=== PATIENT | female | born 1995 | race African-American/Black ===

== ENCOUNTER 2017-05-11 10:14 | Emergency (ER) | payer MEDICAID, OTHER ==
[~2017-05-11] VITALS: Ht 160 cm; Wt 59.0 kg
[2017-05-11 10:14] VITALS: BP 109/58
== END 2017-05-11 10:56 | disposition home or self-care (01) ==
LOC: ER 10:19
DX: B95.8 Unspecified staphylococcus as the cause of diseases classified elsewhere (principal)
CPT/HCPCS: 99283; A4606; Z7610

== ENCOUNTER 2017-07-27 22:16 | Emergency (ER) | payer OTHER ==
[~2017-07-27] VITALS: Ht 160 cm; Wt 59.0 kg
[2017-07-27 22:42] VITALS: BP 104/56
[2017-07-27 23:27] LABS: APPEARANCE,URINE CLOUDY (CLEAR); BILIRUBIN,URINE NEGATIVE (NEGATIVE); BLOOD, URINE 3+ Ery/uL (NEGATIVE); COLOR,URINE YELLOW (YELLOW); KETONES,URINE TRACE (NEGATIVE); LEUKOCYTE ESTERASE ,URINE 2+ (NEGATIVE); NITRITE, URINE NEGATIVE (NEGATIVE); PROTEIN,URINE TRACE mg/dl (NEGATIVE); UGLUCOSE NEGATIVE (NEGATIVE)
[2017-07-27 23:34] LABS: BACTERIA,URINE Few /HPF (None Seen); WBC,URINE TOO NUMEROUS TO COUN /HPF (0-3)
[2017-07-27 23:35] LABS: SQUAMOUS EPITHELIAL CELL,UR Few /HPF (None Seen)
[2017-07-27] MEDS ORDERED: CEPHALEXIN MONOHYDRATE 500 MG CAPSULE PO ONE (23:48)
[2017-07-28] MEDS ORDERED: CEPHALEXIN MONOHYDRATE 500 MG CAPSULE PO ONE
== END 2017-07-27 23:51 | disposition home or self-care (01) ==
LOC: ER 22:24
DX: N39.0 Urinary tract infection, site not specified (principal); F10.10 Alcohol abuse, uncomplicated
CPT/HCPCS: 81001; 84703; 87077; 87086; 87491; 87591; 99284; A4606; Z7610; 81000-TC

== ENCOUNTER 2017-10-28 14:42 | Emergency (ER) | payer MEDICAID, OTHER ==
[~2017-10-28] VITALS: Ht 160 cm; Wt 59.0 kg
--- NOTE | 2017-10-28 14:56 | NUR ---
CALL IN THE WAITING ROOM NO ANSWER
[2017-10-28 15:40] VITALS: BP 118/60
== END 2017-10-28 15:49 | disposition home or self-care (01) ==
LOC: ER 14:44
DX: S19.9XXA Unspecified injury of neck, initial encounter (principal); F10.10 Alcohol abuse, uncomplicated; Y90.9 Presence of alcohol in blood, level not specified; V49.59XA Passenger injured in collision with other motor vehicles in traffic accident, initial encounter; Y93.89 Activity, other specified; Y92.410 Unspecified street and highway as the place of occurrence of the external cause; Y99.8 Other external cause status
CPT/HCPCS: 99283; Z7610